=== PATIENT | male | born 2000 | race Caucasian/White ===

== ENCOUNTER 2018-04-13 00:58 | Emergency (ER) | payer BC ==
[~2018-04-13] VITALS: Ht 170.2 cm; Wt 59.0 kg
[~2018-04-13 00:58] MED LIST: AMOXICILLIN875 MG OR; DENIES CURRENT MEDS; TOBRAMYCIN0.3 % OP
[2018-04-13 01:00] VITALS: BP 126/79
== END 2018-04-13 01:30 | disposition home or self-care (01) | DRG 605 ==
LOC: ED 00:58
DX: S60.512A Abrasion of left hand, initial encounter (principal); F17.210 Nicotine dependence, cigarettes, uncomplicated; W25.XXXA Contact with sharp glass, initial encounter; Y93.89 Activity, other specified; Y92.009 Unspecified place in unspecified non-institutional (private) residence as the place of occurrence of the external cause